=== PATIENT | female | born 1965 | race African-American/Black ===

== ENCOUNTER 2022-01-17 18:42 | Emergency (ER) | payer OTHER ==
[~2022-01-17] VITALS: Ht 170.2 cm; Wt 97.5 kg
[2022-01-17] MEDS ORDERED: KETOROLAC TROMETHAMINE 30 MG/ML VIAL IM STA (19:23)
[2022-01-17] MEDS ORDERED: KETOROLAC TROMETHAMINE 60 MG/2 ML VIAL ONE (19:40)
[2022-01-17] MEDS ORDERED: PREDNISONE20 MG PO (21:14)
[2022-01-17] MEDS ORDERED: ULTRAM 50MG50 MG PO (21:15)
[2022-01-17] MEDS ORDERED: PREDNISONE 20 MG TAB PO ONE (21:20)
== END 2022-01-17 21:45 | disposition home or self-care (01) ==
LOC: FSED 19:04
DX: M77.52 Other enthesopathy of left foot and ankle (principal); M25.511 Pain in right shoulder; M13.811 Other specified arthritis, right shoulder; M10.9 Gout, unspecified; I10 Essential (primary) hypertension
CPT/HCPCS: 99283; J1885

== ENCOUNTER 2022-05-19 09:37 | Observation (INO) | payer OTHER ==
[~2022-05-19] VITALS: Ht 167.6 cm; Wt 94.3 kg
[~2022-05-19 09:37] MED LIST: PREDNISONE20 MG PO; ULTRAM 50MG50 MG PO
[2022-05-19] MEDS ORDERED: FUROSEMIDE INJ 10 MG/ML 4 ML VIAL IV STA (10:00)
[2022-05-19 10:30] LABS: BASOPHILS # (AUTO) 0.1 (0.0-0.1); BASOPHILS % 0.5 % (0.0-1.0); EOSINOPHILS # (AUTO) 0.2 (0.0-0.4); HEMATOCRIT 35.3 % (34.2-44.1); HEMOGLOBIN 10.8 g/dL (12.0-16.0); LYMPHOCYTES # (AUTO) 2.7 (1.0-3.2); LYMPHOCYTES % 25.6 % (18.0-39.1); MEAN CORPUSCULAR HEMOGLOBIN 28.6 pg (28-32); MEAN CORPUSCULAR HGB CONC 30.6 g/dL (31-35); MEAN CORPUSCULAR VOLUME 93.4 fL (81-99); MONOCYTES # (AUTO) 0.7 (0.2-0.8); MONOCYTES % 6.3 % (4.4-11.3); NEUTROPHILS # (AUTO) 6.9 (2.1-6.9); NEUTROPHILS % 65.2 % (38.7-80.0); PLATELET COUNT 305 x10e3/uL (140-360); RED BLOOD COUNT 3.78 x10e6/uL (3.6-5.1); RED CELL DISTRIBUTION WIDTH 13.7 % (11.7-14.4)
[2022-05-19 10:55] LABS: ALBUMIN 3.5 g/dL (3.5-5.0); ANION GAP 16.6 mmol/L (8-16); CALCIUM 9.5 mg/dL (8.4-10.2); CREATININE, SERUM 1.46 mg/dL (0.57-1.11); POTASSIUM 3.6 mmol/L (3.5-5.1)
[2022-05-19 11:01] LABS: CREATINE KINASE MB 2.5 ng/mL (0-5.0)
[2022-05-19] MEDS ORDERED: HYDRALAZINE HCL 20 MG/ML VIAL IV STA (11:12)
[2022-05-19 11:21] LABS: AMPHETAMINES SCREEN,URINE NEGATIVE (NEGATIVE); BENZODIAZEPINES SCREEN,URINE NEGATIVE (NEGATIVE); PHENCYCLIDINE SCREEN,URINE NEGATIVE (NEGATIVE)
[2022-05-19] MEDS ORDERED: Morphine 4mg INJECTION 4 MG/ML INJ IV PRN (11:45)
[2022-05-19] MEDS ORDERED: ONDANSETRON HCL INJ 2MG/ML 2ML 2 MG/ML VIAL IV PRN (11:45)
[2022-05-19] MEDS ORDERED: SODIUM CHLORIDE FLUSH 10 ML SYR INJ PRN (11:45)
[2022-05-19] MEDS ORDERED: IOPAMIDOL 370 MG/ML 100 ML INFUS..BTL INJ ONE (11:55)
[2022-05-19 14:48] VITALS: BP 157/95
[2022-05-19 14:58] VITALS: BP 157/95
[2022-05-19 16:55] VITALS: BP 157/95
[2022-05-19] MEDS ORDERED: ACETAMINOPHEN 325 MG TAB PO PRN (18:45)
[2022-05-19 19:16] LABS: CREATINE KINASE 161 IU/L (29-168)
[2022-05-19 20:00] VITALS: BP 158/76
[2022-05-19 21:00] VITALS: BP 158/76
[2022-05-20] VITALS (9 sets, daily range): BP systolic 111–182; BP diastolic 61–95
[2022-05-20 04:04] LABS: CREATINE KINASE 132 IU/L (29-168)
[2022-05-20 05:34] LABS: BASOPHILS % 0.5 % (0.0-1.0); EOSINOPHILS # (AUTO) 0.2 (0.0-0.4); EOSINOPHILS % 2.3 % (0.0-6.0); HEMATOCRIT 33.5 % (34.2-44.1); HEMOGLOBIN 10.7 g/dL (12.0-16.0); LYMPHOCYTES # (AUTO) 2.6 (1.0-3.2); LYMPHOCYTES % 30.4 % (18.0-39.1); MEAN CORPUSCULAR HEMOGLOBIN 28.7 pg (28-32); MEAN CORPUSCULAR HGB CONC 31.9 g/dL (31-35); MEAN CORPUSCULAR VOLUME 89.8 fL (81-99); MONOCYTES # (AUTO) 0.6 (0.2-0.8); NEUTROPHILS % 59.3 % (38.7-80.0); PLATELET COUNT 293 x10e3/uL (140-360); RED BLOOD COUNT 3.73 x10e6/uL (3.6-5.1)
[2022-05-20 06:04] LABS: ALBUMIN 3.1 g/dL (3.5-5.0); ALBUMIN/GLOBULIN RATIO 0.9 (0.8-2.0); ANION GAP 16.3 mmol/L (8-16); CALCIUM 9.3 mg/dL (8.4-10.2); CREATININE, SERUM 1.42 mg/dL (0.57-1.11); POTASSIUM 3.3 mmol/L (3.5-5.1)
[2022-05-20] MEDS ORDERED: NIFEDIPINE CR 30 MG TAB PO SCH (09:00)
[2022-05-20] MEDS ORDERED: TRAMADOL HCL 50 MG TAB PO PRN (09:15)
[2022-05-20] MEDS ORDERED: HYDRALAZINE HCL 25 MG TAB PO PRN (09:15)
[2022-05-20] MEDS ORDERED: POTASSIUM CHLORIDE 10MEQ EA PO ONE (10:00)
[2022-05-20] MEDS ORDERED: LISINOPRIL10 MG PO (10:15)
[2022-05-20 10:38] LABS: CREATINE KINASE MB 1.1 ng/mL (0-5.0)
[2022-05-20] MEDS: SODIUM BICARBONATE 8.4% 50 ML in SODIUM CHLORIDE 0.45% 1,000 ML IV SCH ×2 (11:00→12:15)
[2022-05-20] MEDS: NIFEDIPINE CR 30 MG TAB PO SCH ×2 (12:27→20:54)
[2022-05-20 14:24] LABS: CLARITY,URINE CLEAR (CLEAR); COLOR,URINE YELLOW (YELLOW); KETONES,URINE NEGATIVE (NEGATIVE); LEUKOCYTE ESTERASE ,URINE NEGATIVE (NEGATIVE); NITRITE,URINE NEGATIVE (NEGATIVE); PROTEIN,URINE DIPSTICK 2+ (NEGATIVE); URINE UROBILINOGEN 0.2 mg/dL (0.2 - 1)
[2022-05-20 14:27] LABS: AMPHETAMINES SCREEN,URINE NEGATIVE (NEGATIVE); BENZODIAZEPINES SCREEN,URINE NEGATIVE (NEGATIVE); PHENCYCLIDINE SCREEN,URINE NEGATIVE (NEGATIVE)
[2022-05-20 14:28] LABS: BACTERIA,URINE MODERATE /HPF; EPITHELIAL CELLS,URINE FEW /LPF
[2022-05-21] VITALS: BP 165/84
[2022-05-21 04:00] VITALS: BP 145/97
[2022-05-21 07:42] LABS: ALBUMIN 3.2 g/dL (3.5-5.0); ALBUMIN/GLOBULIN RATIO 0.9 (0.8-2.0); ANION GAP 17.7 mmol/L (8-16); CALCIUM 9.5 mg/dL (8.4-10.2); CREATININE, SERUM 1.3 mg/dL (0.57-1.11); POTASSIUM 3.7 mmol/L (3.5-5.1)
[2022-05-21 08:31] VITALS: BP 162/87
[2022-05-21] MEDS: NIFEDIPINE CR 30 MG TAB PO SCH (09:00)
[2022-05-21 11:08] VITALS: BP 162/87
[2022-05-21 12:47] VITALS: BP 163/95
[2022-05-21] MEDS ORDERED: NIFEDIPINE ER30 M1 PO (14:32)
== END 2022-05-21 16:50 | disposition home or self-care (01) ==
LOC: ER 09:48 → ERHOLD 11:40 → MED/SURG 14:30
PROVIDERS: ADMIT Internal Medicine; ATTEND Internal Medicine
DX: I16.0 Hypertensive urgency (principal); I49.3 Ventricular premature depolarization; Z20.822 Contact with and (suspected) exposure to COVID-19; Z91.14 Patient's other noncompliance with medication regimen; I12.9 Hypertensive chronic kidney disease with stage 1 through stage 4 chronic kidney disease, or unspecified chronic kidney disease; N18.9 Chronic kidney disease, unspecified; N17.9 Acute kidney failure, unspecified
CPT/HCPCS: 36415; 71045; 71260; 74176; 76770; 80053; 80307; 81001; 82550; 82553; 83880; 84443; 84484; 85025; 85651; 86039; 86431; 93005; 93306; 94799; 99284; G0378; J0360; J1940; Q9967

== ENCOUNTER 2022-06-02 05:52 | Emergency (ER) | payer OTHER ==
[~2022-06-02] VITALS: Ht 167.6 cm; Wt 94.3 kg
[~2022-06-02 05:52] MED LIST changes: +LISINOPRIL10 MG PO; +NIFEDIPINE ER30 M1 PO
[2022-06-02] MEDS ORDERED: KETOROLAC TROMETHAMINE 30 MG/ML VIAL IV STA ×2 (07:09→08:02)
[2022-06-02] MEDS ORDERED: SODIUM CHLORIDE 0.9% 1000ML 1,000 ML IV STA (07:11)
[2022-06-02] MEDS ORDERED: PREDNISONE 20 MG TAB PO STA (07:26)
[2022-06-02] MEDS ORDERED: KETOROLAC TROMETHAMINE 30 MG/ML VIAL ONE (07:28)
[2022-06-02] MEDS ORDERED: KETOROLAC TROMETHAMINE 60 MG/2 ML VIAL IM ONE (07:30)
[2022-06-02] MEDS ORDERED: COLCHICINE 0.6 MG TAB PO ONE (07:30)
[2022-06-02] MEDS ORDERED: Morphine 4mg INJECTION 4 MG/ML INJ IV STA (08:08)
[2022-06-02] MEDS ORDERED: ONDANSETRON HCL INJ 2MG/ML 2ML 2 MG/ML VIAL IV STA (08:08)
[2022-06-02] MEDS ORDERED: PREDNISONE 20 MG TAB ONE (08:21)
[2022-06-02] MEDS ORDERED: PIPERACILLIN/TAZOBACTAM 3.375 GM VIAL ONE (08:23)
[2022-06-02] MEDS ORDERED: SODIUM CHLORIDE 0.9% 1000ML 1,000 ML ONE (08:23)
[2022-06-02] MEDS ORDERED: CEPHALEXIN500 MG PO (09:07)
[2022-06-02] MEDS ORDERED: BACTRIM 400-801 EACH PO (09:07)
[2022-06-02] MEDS ORDERED: HYDROCODON-ACE1 EA11 PO (09:07)
[2022-06-02] MEDS ORDERED: PREDNISONE20 MG PO (09:07)
[2022-06-02 09:27] VITALS: BP 166/102
== END 2022-06-02 09:29 | disposition home or self-care (01) ==
LOC: FSED 07:05
DX: L03.115 Cellulitis of right lower limb (principal); I10 Essential (primary) hypertension; M10.9 Gout, unspecified
CPT/HCPCS: 71046; 93971; 99284; J1885; J2270; J2405; J2543; J7030; J7512